=== PATIENT | male | born 1960 | race Caucasian/White ===

== ENCOUNTER 2021-09-05 22:52 | Emergency (ER) | payer MEDICAID ==
[~2021-09-05] VITALS: Ht 172.7 cm; Wt 68.0 kg
--- NOTE | 2021-09-05 23:04 | NUR ---
After being triaged, patient in hallway sitting on chair with rescue.
[2021-09-06 00:20] LABS: HEMATOCRIT 43.1 % (36.7-47.1); MEAN CORPUSCULAR VOLUME 90.8 fL (73.0-96.2); PLATELET COUNT (AUTO) 401 K/uL (152-348)
[2021-09-06 01:10] LABS: CREATININE 1.3 mg/dL (0.6-1.3); POTASSIUM 3.6 mmol/L (3.5-5.1)
[2021-09-06 01:18] LABS: BILIRUBIN,DIRECT 0.3 mg/dL (0.0-0.2)
[2021-09-06] MEDS ORDERED: IV D5/ 0.9% NACL 1,000 ML IV ONE (02:30)
[2021-09-06] MEDS ORDERED: CHLORDIAZEPOXIDE HCL 25 MG CAPSULE PO ONE (02:30)
[2021-09-06 02:36] LABS: *AMPHETAMINE, URINE NEGATIVE (NEGATIVE); *CANNABINOID, URINE NEGATIVE (NEGATIVE); *COCCAINE, URINE NEGATIVE (NEGATIVE); *OPIATE, URINE NEGATIVE (NEGATIVE); *PHENCYCLIDINE SCREEN,URINE NEGATIVE (NEGATIVE)
[2021-09-06] MEDS ORDERED: ONDANSETRON 4 MG/2 ML VIAL IV ONE (02:45)
[2021-09-06] MEDS ORDERED: ONDANSETRON ODT 4 MG TAB.RAPDIS SL ONE (02:45)
[2021-09-06] MEDS ORDERED: ONDANSETRON 4 MG/2 ML VIAL ONE (02:55)
[2021-09-06] MEDS ORDERED: ONDANSETRON ODT 4 MG TAB.RAPDIS ONE (02:55)
[2021-09-06] MEDS ORDERED: CHLORDIAZEPOXIDE HCL 25 MG CAPSULE ONE (03:08)
--- NOTE | 2021-09-06 03:42 | NUR ---
Patient placed in room 4A.
[2021-09-06] MEDS ORDERED: COLC0.6C3 PO (06:41)
[2021-09-06] MEDS ORDERED: ALLO100T PO (06:41)
--- NOTE | 2021-09-06 07:45 | NUR ---
patient resting in bed, GCS 15, AAOx4, patient verbalizes feeling better upon awakening
[2021-09-06 08:11] LABS: CREATININE 1.1 mg/dL (0.6-1.3)
[2021-09-06] MEDS ORDERED: LORAZEPAM 1 MG TABLET ONE (08:47)
[2021-09-06] MEDS ORDERED: LORAZEPAM 0.5 MG TABLET PO ONE ×2 (09:00→12:30)
[2021-09-06] MEDS ORDERED: LORAZEPAM 0.5 MG TABLET ONE (12:27)
[2021-09-06] MEDS ORDERED: IV NORMAL SALINE 1000 ML BAG IV ONE (12:30)
[2021-09-06] MEDS ORDERED: CHLO25CA10 PO (12:49)
[2021-09-06] MEDS ORDERED: ONDA8TAB13 PO (14:11)
[2021-09-06] MEDS ORDERED: OMEP40CA21 PO (14:11)
[2021-09-06] MEDS ORDERED: LOPE2CAP40 PO (14:11)
--- NOTE | 2021-09-06 14:48 | NUR ---
Patient discharged to home in stable condition. Written and verbal after care instructions given. Patient verbalizes understanding of instructions. Stressed follow up or return to ER for worsening s/s. steady gait, wrist band removed, iv discontinued
[2021-09-06 14:50] VITALS: BP 126/81
== END 2021-09-06 14:48 | disposition home or self-care (01) ==
LOC: ER 22:56
DX: F10.239 Alcohol dependence with withdrawal, unspecified (principal); Y90.2 Blood alcohol level of 40-59 mg/100 ml; K52.9 Noninfective gastroenteritis and colitis, unspecified; Z82.49 Family history of ischemic heart disease and other diseases of the circulatory system; R00.0 Tachycardia, unspecified; Z85.47 Personal history of malignant neoplasm of testis; Z90.79 Acquired absence of other genital organ(s); R25.1 Tremor, unspecified
CPT/HCPCS: 36415 ×2; 80048 ×2; 80076; 80307; 80320; 85025; 96361; 96374; 99284; J2405; J7040; J7060; A4663; G0480; Q0162